=== PATIENT | female | born 1950 | race Caucasian/White ===

== ENCOUNTER 2016-11-22 20:39 | Emergency (ER) | payer MEDICARE, BC ==
--- NOTE | 2016-11-22 21:33 | ED Physician Documentation ---
PD HPI HEENT FB - Chief complaint Chief Complaint: Heent - History obtained from History obtained from: Patient - History of Present Illness Timing - onset: Other (Painful foreign body sensation in the right ear from today. She does have chronic ringing in that ear. Pain is worse if she chews.) Review of Systems Constitutional: denies: Fever, Chills Nose: denies: Rhinorrhea / runny nose, Congestion Throat: denies: Sore throat PD PAST MEDICAL HISTORY - Past Medical History Other Past Medical History: Graves disease in past - Past Surgical History Past Surgical History: Yes Ortho: Shoulder arthroplasty, Carpal Tunnel surgery /TRASH MAN: Hysterectomy - Present Medications Home Medications: Ambulatory Orders Medication Instructions Recorded Confirmed Levothyroxine Sodium 1 tab PO DAILY 11/22/16 11/22/16 - Allergies Allergies/Adverse Reactions: Allergies Allergy/AdvReac Type Severity Reaction Status Date / Time sulfamethoxazole Allergy Unknown Verified 11/22/16 20:44 [From Bactrim] trimethoprim [From Bactrim] Allergy Unknown Verified 11/22/16 20:44 codeine AdvReac Emesis Verified 11/22/16 20:43 - Social History Does the pt smoke?: No Smoking Status: Never smoker Does the pt drink ETOH?: No Does the pt have substance abuse?: No - Immunizations Immunizations are current?: Yes - POLST Patient has POLST: No PD ED PE NORMAL - Vitals Vital signs reviewed: Yes - General General: Alert and oriented X 3, No acute distress - HEENT HEENT: Other (In the right canal there was a small amount of ear wax which were removed, no other foreign body. Removal of ear wax did not improve her pain. There was no canal inflammation, but there was an abnormal appearance of the superoposterior part of the tympanic membrane, possibly a cholesteatoma. She also has TMJ tenderness and clicking.) - Neck Neck: Supple, no meningeal sign, No bony TTP - Neuro Neuro: Alert and oriented X 3, Normal speech - Psych Psych: Normal mood, Normal affect Results - Vitals Vitals: Vital Signs - 24 hr 11/22/16 20:46 Temperature 36.1 C L Heart Rate 70 Respiratory 16 Rate Blood Pressure 155/82 H O2 Saturation 97 Oxygen O2 Source Room air Departure - Departure Disposition: 01 Home, Self Care Clinical Impression: Abnormal tympanic membrane of right ear Condition: Good Record reviewed to determine appropriate education?: Yes Comments: Recommend following up with Dr. Bonilla again, the phone number there is , call tomorrow to schedule an appointment. Return if worse or if new symptoms develop. Your blood pressure was elevated today on check in to the emergency department. This does not mean that you have hypertension, it is a common phenomenon to check into the emergency department and have elevated blood pressure. I recommend that you see your primary care physician within the week to have it rechecked when you're feeling better.
[2016-11-22 21:38] VITALS: BP 140/82
== END 2016-11-22 21:39 | disposition home or self-care (01) ==
LOC: ED 20:39
DX: H73.891 Other specified disorders of tympanic membrane, right ear (principal); R03.0 Elevated blood-pressure reading, without diagnosis of hypertension
CPT/HCPCS: 99283

== ENCOUNTER 2018-04-22 21:54 | Emergency (ER) | payer MEDICARE, BC ==
--- NOTE | 2018-04-22 21:58 | ED Physician Documentation ---
PD HPI CHEST PAIN - Stated complaint Stated Complaint: SOA/CP/NAUSEA - History obtained from History obtained from: Patient - History of Present Illness Timing - onset: Enter time (21:00), Today Timing - onset during: Light activity Timing - details: Abrupt onset Pain level max: 5 Pain level now: 1 Quality: Pressure, Sharp, Pain Location: Left chest Radiation: Back (left upper back), Left upper extremity (left shoulder) Improved by: Nothing Worsened by: Movement (movement of left shoulder) Associated symptoms: Shortness of air, Nausea, Vomiting Similar symptoms before: Has not had sx before Recently seen: Not recently seen Review of Systems Constitutional: reports: Reviewed and negative Cardiac: reports: Chest pain / pressure. denies: Palpitations, Pedal edema, Calf pain Respiratory: reports: Dyspnea. denies: Cough, Wheezing GI: reports: Nausea, Vomiting. denies: Abdominal Pain Musculoskeletal: reports: Back pain (chest pain radiates to left upper back (not back pain per se)). 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: No Does the pt have substance abuse?: No - Immunizations Immunizations are current?: Yes - POLST Patient has POLST: No PD ED PE NORMAL - Vitals Vital signs reviewed: Yes - General General: Alert and oriented X 3, No acute distress, Well developed/nourished - HEENT HEENT: Moist mucous membranes - Neck Neck: Supple, no meningeal sign - Cardiac Cardiac: RRR, No murmur, No gallop, No rub - Respiratory Respiratory: No respiratory distress, Clear bilaterally - Abdomen Abdomen: Soft, Non tender - Derm Derm: Normal color, Warm and dry - Extremities Extremities: No edema Results - Vitals Vitals: Vital Signs - 24 hr 04/22/18 04/22/18 04/22/18 21:59 22:55 23:40 Heart Rate 69 66 68 Respiratory 15 17 18 Rate Blood Pressure 185/86 H 158/83 H 165/77 H O2 Saturation 98 95 99 Oxygen O2 Source Room air - EKG (time done) No standard instances Rate: Rate (enter#) (64) Rhythm: NSR [place]: Normal Intervals: Normal [place] QRS: Normal Ischemia: Normal ST segments - Labs Labs: Laboratory Tests 04/22/18 04/22/18 04/22/18 22:15 22:15 22:15 WBC 5.9 RBC 4.52 Hgb 13.8 Hct 41.6 MCV 92.0 MCH 30.6 MCHC 33.3 RDW 13.0 Plt Count 246 MPV 8.1 Neut # (Auto) 3.2 Lymph # (Auto) 1.8 [place] # (Auto) 0.5 Eos # (Auto) 0.3 Baso # (Auto) 0.1 Absolute Nucleated RBC 0.00 Nucleated RBC % 0.1 Sodium 141 Potassium 3.2 L Chloride 104 Carbon Dioxide 29 Anion Gap 8.0 BUN 17 Creatinine 0.6 Estimated GFR (MDRD) 99 Glucose 118 H Calcium 8.5 Total Bilirubin 0.8 AST 29 ALT 23 Alkaline Phosphatase 88 Troponin I < 0.04 Total Protein 7.2 Albumin 4.2 Globulin 3.0 Albumin/Globulin Ratio 1.4 Lipase 42 - Rads (name of study) chest xray Radiology: Prelim report reviewed, See rad report PD MEDICAL DECISION MAKING - ED course Complexity details: reviewed results, re-evaluated patient, considered differential, d/w patient Departure - Departure Disposition: 01 Home, Self Care Clinical Impression: Chest pain, Hypokalemia Condition: Good Instructions: ED Chest Pain Atypical Unkn Cause, ED Potassium Deficiency Follow-Up: Cecile Chow PA [Primary Care Provider] - Comments: I recommend that you take an aspirin 325mg one tablet by mouth once per day until and unless you are advised otherwise by your primary care provider. Discharge Date/Time: 04/22/18 23:50
[2018-04-22 22:25] LABS: BASOPHILS # (AUTO) 0.1 10^3/uL (0.0-0.1); BASOPHILS % (AUTO) 0.9 %; EOSINOPHILS # (AUTO) 0.3 10^3/uL (0.0-0.7); EOSINOPHILS % (AUTO) 5.5 %; HGB - HEMOGLOBIN 13.8 g/dL (12.0-16.0); LYMPHOCYTES # (AUTO) 1.8 10^3/uL (1.5-3.5); LYMPHOCYTES % (AUTO) 30.8 %; MEAN CORPUSCULAR HEMOGLOBIN 30.6 pg (27.0-31.0); MEAN CORPUSCULAR HGB CONC 33.3 g/dL (32.0-36.0); MEAN PLATELET VOLUME 8.1 fL (7.9-10.8); MONOCYTES # (AUTO) 0.5 10^3/uL (0.0-1.0); MONOCYTES % (AUTO) 8.1 %; NEUTROPHILS # (AUTO) 3.2 10^3/uL (1.5-6.6); NEUTROPHILS % (AUTO) 54.7 %; PLT - PLATELET COUNT 246 10^3/uL (130-450); RED BLOOD COUNT 4.52 10^6/uL (4.20-5.40); WHITE BLOOD COUNT 5.9 x10^3/uL (4.8-10.8)
[2018-04-22 22:35] LABS: ALBUMIN 4.2 g/dL (3.2-5.5); ALBUMIN/GLOBULIN RATIO 1.4 (1.0-2.2); BILIRUBIN,TOTAL 0.8 mg/dL (0.2-1.0); CALCIUM 8.5 mg/dL (8.5-10.3); CREATININE 0.6 mg/dL (0.4-1.0); TOTAL PROTEIN 7.2 g/dL (6.7-8.2)
--- NOTE | 2018-04-22 22:56 | XRAY Report ---
Reason: chest pain Procedure Date: 04/22/2018 Accession Number: [id number] / [id number] Procedure: XR - Chest 2 View X-Ray CPT Code: 93671 FULL RESULT: EXAM: CHEST RADIOGRAPHY EXAM DATE: 04/22/2018 10:26 PM. CLINICAL HISTORY: Chest pain. COMPARISON: None. TECHNIQUE: 2 views. FINDINGS: Lungs/Pleura: No focal opacities evident. No pleural effusion. No pneumothorax. Normal volumes. Mediastinum: Heart and mediastinal contours are unremarkable. Other: None. IMPRESSION: Normal 2-view chest radiography. RADIA
[2018-04-22] MEDS ORDERED: POTASSIUM BICARB 25 MEQ TABLET PO STA (23:26)
[2018-04-22] MEDS ORDERED: ASPIRIN CHEW 81 MG TABLET PO STA (23:33)
[2018-04-22 23:41] VITALS: BP 165/77
== END 2018-04-22 23:50 | disposition home or self-care (01) ==
LOC: ED 21:54
DX: R07.9 Chest pain, unspecified (principal); E87.6 Hypokalemia; E03.9 Hypothyroidism, unspecified
CPT/HCPCS: 36415; 71046; 80053; 83690; 84484; 85025; 93005; 99283; 99284; A9270

== ENCOUNTER 2018-04-26 11:56 | Emergency (ER) | payer MEDICARE, BC ==
--- NOTE | 2018-04-26 13:10 | ED Physician Documentation ---
History of Present Illness - Stated complaint Stated Complaint: L HEAD PRESSURE/L SHOULDER PX - Chief complaint Chief Complaint: General - History obtained from History obtained from: Patient - Additonal information Additional information: The patient is a 68-year-old female who presents with left-sided pressure sensation in her head, with mild numbness and tingling in her left arm and left foot. She denies weakness. Her symptoms started about 3 hours prior to arrival and have persisted since that time. She reports a vague sharp discomfort in her left shoulder, of brief duration. She denies any chest pain or shortness of breath. She denies fever, cough, nausea or vomiting. She was seen here 4 days ago with vague left-sided chest discomfort. Cardiac workup at that time was negative, and she was discharged with diagnosis of atypical chest pain. She has followed up with her primary physician since that time and is scheduled for an outpatient stress test. Review of Systems Constitutional: denies: Fever, Fatigue Eyes: denies: Decreased vision Ears: denies: Tinnitus/ringing Nose: denies: Congestion Throat: denies: Sore throat Cardiac: denies: Chest pain / pressure, Palpitations Respiratory: denies: Dyspnea, Cough GI: denies: Abdominal Pain, Nausea, Vomiting : denies: Dysuria Skin: denies: Rash Neurologic: reports: Numbness (Tingling left arm and leg.), Headache (Pressure sensation left head). 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 - Present Medications Home Medications: Ambulatory Orders Medication Instructions Recorded Confirmed Levothyroxine Sodium 1 tab PO DAILY 11/22/16 11/22/16 - Allergies Allergies/Adverse Reactions: Allergies Allergy/AdvReac Type Severity Reaction Status Date / Time sulfamethoxazole Allergy Unknown Verified 04/22/18 22:05 [From Bactrim] trimethoprim [From Bactrim] Allergy Unknown Verified 04/22/18 22:05 codeine AdvReac Emesis Verified 04/22/18 22:05 - Social History Does the pt smoke?: No Smoking Status: Never smoker Does the pt drink ETOH?: No Does the pt have substance abuse?: No - Immunizations Immunizations are current?: Yes - POLST Patient has POLST: No PD ED PE NORMAL - Vitals Vital signs reviewed: Yes (hypertensive) - General General: Alert and oriented X 3, Well developed/nourished - HEENT HEENT: Atraumatic, PERRL, EOMI, Pharynx benign - Neck Neck: Supple, no meningeal sign, No adenopathy, No JVD - Cardiac Cardiac: RRR, No murmur - Respiratory Respiratory: No respiratory distress, Clear bilaterally - Abdomen Abdomen: Soft, Non tender - Back Back: No CVA TTP - Derm Derm: No rash - Extremities Extremities: No edema, No calf tenderness / cord - Neuro Neuro: Alert and oriented X 3, checking clerk 2-12 intact, No motor deficit, No sensory deficit, Normal speech, Other (No pronator drift.) Eye Opening: Spontaneous Motor: Obeys Commands Verbal: Oriented GCS Score: 15 Results - Vitals Vitals: Vital Signs - 24 hr 04/26/18 04/26/18 04/26/18 12:08 14:39 16:01 Temperature 36.8 C Heart Rate 67 62 61 Respiratory 16 16 16 Rate Blood Pressure 151/86 H 151/87 H 155/78 H O2 Saturation 98 98 96 Oxygen O2 Source Room air - EKG (time done) 12:40 Rate: Rate (enter#) (60) Rhythm: NSR [place]: Normal Intervals: Normal [place] Ischemia: Q waves (in III, consistent with previous inferior IA.) Compare to prior EKG: Changed from prior EKG (Q waves in lead III are new compared to prior EKG of 04/22/2018.) Computer interpretation: Agree with computer - Labs Labs: Laboratory Tests 04/26/18 04/26/18 04/26/18 13:28 13:28 13:28 WBC 6.0 RBC 4.56 Hgb 14.5 Hct 41.8 MCV 91.8 MCH 31.8 H MCHC 34.6 RDW 13.4 Plt Count 274 MPV 8.2 Neut # (Auto) 3.6 Lymph # (Auto) 1.5 [place] # (Auto) 0.5 Eos # (Auto) 0.3 Baso # (Auto) 0.0 Absolute Nucleated RBC 0.00 Nucleated RBC % 0.0 Sodium 138 Potassium 4.1 Chloride 102 Carbon Dioxide 28 Anion Gap 8.0 BUN 18 Creatinine 0.6 Estimated GFR (MDRD) 99 Glucose 88 Calcium 8.8 Troponin I < 0.04 - Rads (name of study) head CT Radiology: Prelim report reviewed, EMP read contemporaneously, See rad report (Generalized age-related cortical atrophic changes without evidence of acute intracranial abnormality.) Carotid duplex scan Radiology: Prelim report reviewed, EMP read contemporaneously, See rad report (No significant bilateral carotid artery plaquing. In the right carotid artery there are no elevated carotid artery velocities to suggest hemodynamically significant stenosis. In the left carotid artery there is no elevated carotid artery velocities to suggest hemodynamically significant stenosis. Normal antegrade flow is present in bilateral vertebral arteries.) PD MEDICAL DECISION MAKING - ED course Complexity details: reviewed old records, reviewed results, re-evaluated patient, considered differential, d/w patient, d/w family ED course: The patient's presentation is most consistent with TIA versus vascular spasm. There is no evidence to suggest acute stroke or intracranial hemorrhage. Treatment in the emergency department included administration of 4 baby aspirin orally. I discussed with the patient and her partner the results of her diagnostic workup, importance of outpatient followup, as well as potentially worrisome signs or symptoms that should prompt reevaluation in the Emergency Department. Departure - Departure Disposition: 01 Home, Self Care Clinical Impression: TIA (transient ischemic attack) Condition: Stable Instructions: ED Transient Ischemic Attack Follow-Up: Cecile Chow PA [Primary Care Provider] - Comments: Take 1 baby aspirin daily. Follow-up with your primary care provider as planned. Return to the emergency department if you develop recurrent or increasing numbness, weakness, headache, chest pain, or otherwise worsening symptoms.
[2018-04-26 13:36] LABS: BASOPHILS % (AUTO) 0.7 %; EOSINOPHILS # (AUTO) 0.3 10^3/uL (0.0-0.7); EOSINOPHILS % (AUTO) 5.4 %; HGB - HEMOGLOBIN 14.5 g/dL (12.0-16.0); LYMPHOCYTES # (AUTO) 1.5 10^3/uL (1.5-3.5); LYMPHOCYTES % (AUTO) 24.9 %; MEAN CORPUSCULAR HEMOGLOBIN 31.8 pg (27.0-31.0); MEAN CORPUSCULAR HGB CONC 34.6 g/dL (32.0-36.0); MEAN CORPUSCULAR VOLUME 91.8 fL (81.0-99.0); MEAN PLATELET VOLUME 8.2 fL (7.9-10.8); MONOCYTES # (AUTO) 0.5 10^3/uL (0.0-1.0); MONOCYTES % (AUTO) 8.4 %; NEUTROPHILS # (AUTO) 3.6 10^3/uL (1.5-6.6); NEUTROPHILS % (AUTO) 60.6 %; PLT - PLATELET COUNT 274 10^3/uL (130-450); RED BLOOD COUNT 4.56 10^6/uL (4.20-5.40); RED CELL DISTRIBUTION WIDTH 13.4 % (12.0-15.0)
[2018-04-26 13:48] LABS: CALCIUM 8.8 mg/dL (8.5-10.3); CREATININE 0.6 mg/dL (0.4-1.0)
--- NOTE | 2018-04-26 15:22 | CT Report ---
Reason: left sided headache, with lower extremity tingling Procedure Date: 04/26/2018 Accession Number: [id number] / [id number] Procedure: CT - Head W/O CPT Code: FULL RESULT: EXAM: CT HEAD EXAM DATE: 04/26/2018 03:04 PM. CLINICAL HISTORY: Left-sided headache, with lower extremity tingling. COMPARISON: None. TECHNIQUE: Multiaxial CT images were obtained from the foramen magnum to the vertex. Reformats: Sagittal and coronal. IV contrast: None. In accordance with CT protocol optimization, one or more of the following dose reduction techniques were utilized for this exam: automated exposure control, adjustment of mA and/or KV based on patient size, or use of iterative reconstructive technique. FINDINGS: Parenchyma: No intraparenchymal hemorrhage. No evidence of mass, midline shift, or CT findings of acute infarction. Navas-white differentiation is distinct. Diffuse chronic microangiopathic white matter changes are evident. Extraaxial Spaces: Normal for age. No subdural or epidural collections identified. Ventricles: The ventricles and cortical sulci are enlarged, consistent with age-related tissue loss. Sinuses and orbits: Imaged paranasal sinuses, orbits, and mastoids show no significant abnormality. Bones: No evidence of fracture or calvarial defect. Other: None. IMPRESSION: Generalized age-related cortical atrophic changes without evidence of acute intracranial abnormality. RADIA
--- NOTE | 2018-04-26 18:41 | Ultrasound Report ---
Reason: vague right sided neuro deficits Procedure Date: 04/26/2018 Accession Number: [id number] / [id number] Procedure: US - Carotid Doppler Complete CPT Code: FULL RESULT: EXAM: BILATERAL CAROTID AND VERTEBRAL ARTERY DUPLEX DOPPLER ULTRASOUND: EXAM DATE: 04/26/2018 06:00 PM CLINICAL HISTORY: Vague right-sided neuro deficits. COMPARISON: None. TECHNIQUE: Grayscale imaging, color Doppler, and duplex spectral Doppler were used to evaluate the carotid and vertebral arteries bilaterally. Static images were obtained. FINDINGS: No significant plaque is identified in the right or left common or internal carotid arteries. Normal antegrade flow is present in bilateral vertebral arteries. VELOCITIES (cm/sec): Right CCA mid: PSV 65.6 cm/sec CCA dist: PSV 55.3 cm/sec ICA prox: PSV 35.8 cm/sec, EDV 13.9 cm/sec ICA mid: PSV 46.7 cm/sec, EDV 22.3 cm/sec ICA dist: PSV 50.7 cm/sec, EDV 19.0 cm/sec ECA: PSV 42.8 cm/sec Vert: PSV 47.9 cm/sec ICA/CCA: 0.77 Left CCA mid: PSV 62.6 cm/sec CCA dist: PSV 66.5 cm/sec ICA prox: PSV 62.3 cm/sec, EDV 23.8 cm/sec ICA mid: PSV 108.6 cm/sec, EDV 40.4 cm/sec ICA dist: PSV 97.6 cm/sec, EDV 38.8 cm/sec ECA: PSV 48.8 cm/sec Vert: PSV 43.1 cm/sec ICA/CCA: 1.6 ICA diameter stenosis: Right: Normal by velocity and <70% by NASCET criteria. Left: Normal by velocity and <70% by NASCET criteria. IMPRESSION: 1. No significant bilateral carotid artery plaquing. 2. In the right carotid artery there are no elevated carotid artery velocities to suggest hemodynamically significant stenosis. 3. In the left carotid artery there are no elevated carotid artery velocities to suggest hemodynamically significant stenosis. 4. Normal antegrade flow is present in bilateral vertebral arteries. General Recommendations: Stenosis =50% ICA - Follow-up ultrasound 6-12 months Stenosis <50% ICA - High Risk Patient with plaque - Follow-up ultrasound 1-2 years Normal Study but High Risk Patient - Follow-up ultrasound 3-5 years Management recommendations and diagnostic criteria are based on current IAC endorsed standards in Carotid Artery Stenosis: Grayscale and Doppler Ultrasound Diagnosis. Validated velocity measurements with angiographic measurements and velocity criteria are extrapolated from diameter data as defined by the Society of Radiologists in Ultrasound Consensus Conference Radiology 2003; 229;340-346. RADIA
[2018-04-26] MEDS ORDERED: ASPIRIN CHEW 81 MG TABLET PO STA (18:47)
[2018-04-26 19:02] VITALS: BP 164/84
== END 2018-04-26 19:13 | disposition home or self-care (01) ==
LOC: ED 11:56
DX: G45.9 Transient cerebral ischemic attack, unspecified (principal); R94.31 Abnormal electrocardiogram [ECG] [EKG]
CPT/HCPCS: 36415; 70450; 80048; 84484; 85025; 93005; 93880; 99283; 99284; A9270

== ENCOUNTER 2018-05-04 08:25 | Outpatient (CLI) | payer MEDICARE, BC | END 2018-05-04 08:26 | disposition home or self-care (01) | LOC: DI 08:25 | PROVIDERS: ATTEND Physician Assistant | DX: R07.9 Chest pain, unspecified (principal); R94.31 Abnormal electrocardiogram [ECG] [EKG]; I10 Essential (primary) hypertension; I34.0 Nonrheumatic mitral (valve) insufficiency | CPT/HCPCS: 93306 ==

== ENCOUNTER 2019-06-24 09:36 | Outpatient (CLI) | payer MEDICARE, BC ==
--- NOTE | 2019-06-24 10:31 | CT Report ---
Reason: ACUTE RHINOSINUSITIS Procedure Date: 06/24/2019 Accession Number: [id number] / [id number] Procedure: CT - Sinuses CPT Code: Final Report FULL RESULT: CT SINUSES WITHOUT CONTRAST INDICATION: 69-year-old female. Acute rhinosinusitis TECHNIQUE: Helical scan with reconstruction into 1 mm axial images. In addition, 1 mm sagittal and coronal reformations have been generated. This examination was performed using a bone algorithm. Images are only available in bone windows. In accordance with CT protocol optimization, one or more of the following dose reduction techniques were utilized for this exam: automated exposure control, adjustment of mA and/or KV based on patient size, or use of iterative reconstructive technique. COMPARISON: 07/14/2008. FINDINGS: Right Frontal: Well aerated and clear. Ethmoid: Mild mucosal thickening is seen scattered throughout the ethmoid air cells. Otherwise well aerated and clear. Maxillary: There is minimal mucosal thickening along the medial wall inferiorly. Otherwise well aerated and clear. Sphenoid: Well aerated and clear. Drainage pathways: The frontal recess is widely patent. The maxillary ostium, the infundibulum and the middle meatus are widely patent. The sphenoethmoidal recess is widely patent. Left Frontal: Well-aerated and clear. Ethmoid: There is mild mucosal thickening in a few air cells. Otherwise well aerated and clear. Maxillary: Well aerated and clear. Sphenoid: Well aerated and clear. Drainage pathways: The frontal recess is patent. The maxillary ostium, the infundibulum and the middle meatus are patent. The sphenoethmoidal recess is patent. Nasal cavity: The nasal septum is midline suggesting the possibility of previous septoplasty. There is mild to moderate mucosal thickening over the middle and inferior turbinates bilaterally with associated narrowing of both nasal passages. No evidence of polyp or other soft tissue mass. The nasopharyngeal soft tissue contours appear symmetric without obvious nasopharyngeal mass. Other: The middle ear cavities and mastoid air cells appear well aerated and clear. Regional bony structures appear intact. The regional soft tissues are normal and evaluated on sequences provided. IMPRESSION: Essentially normal examination. In particular, there is no evidence of active sinusitis. In addition, no obstructing lesion is demonstrated.
== END 2019-06-24 09:37 | disposition home or self-care (01) ==
LOC: DI 09:36
PROVIDERS: ATTEND Otolaryngology
DX: J01.90 Acute sinusitis, unspecified (principal)
CPT/HCPCS: 70486

== ENCOUNTER 2019-06-24 09:52 | Emergency (ER) | payer MEDICARE, BC ==
--- NOTE | 2019-06-24 12:05 | XRAY Report ---
Reason: knee inj Procedure Date: 06/24/2019 Accession Number: [id number] / [id number] Procedure: XR - Knee 4 View LT CPT Code: Final Report FULL RESULT: EXAM: LEFT KNEE RADIOGRAPHY EXAM DATE: 06/24/2019 11:37 AM. CLINICAL HISTORY: Knee injury. Pain and swelling. COMPARISON: None. TECHNIQUE: 4 views. FINDINGS: Bones: On frontal view, there is suggestion of subtle lucency through the lateral aspect of the lateral femoral condyle. This is not clearly seen on additional views. Uncertain if this is artifact or nondisplaced avulsion fracture. Joints: No dislocation or subluxation. A small joint effusion is present. Soft Tissues: Unremarkable. IMPRESSION: 1. Subtle lucency through the lateral femoral condyle may represent artifact or nondisplaced avulsion fracture. If there is focal tenderness in this region, CT or MRI could be considered for further evaluation. 2. Small joint effusion. RADIA
--- NOTE | 2019-06-24 12:12 | ED Physician Documentation ---
History of Present Illness - Stated complaint Stated Complaint: L KNEE PX - Chief complaint Chief Complaint: Trauma Ext - Additonal information Additional information: This is a 69-year-old female who presents with left knee pain. She states that she tripped while walking yesterday and impacted the left knee on the ground. There might have been a bit of twisting motion but no popping or gross deformity. She iced it and took some Advil and it improved for a while, it also seemed to improve when she was in her hot tub, but it was more stiff this morning. She has been able to walk on it but she states that she is voluntarily trying to keep herself from flexing or extending the knee because this causes some pain. She denies any weakness or numbness or tingling. Review of Systems Constitutional: denies: Fever Skin: reports: Abrasion (s). denies: Rash Musculoskeletal: reports: Extremity pain Neurologic: denies: Generalized weakness PD PAST MEDICAL HISTORY - Past Medical History Endocrine/Autoimmune: HyPOthyroidism MUSKRAT TRAPPER: Fibroids Musculoskeletal: Osteoarthritis - Past Surgical History Past Surgical History: Yes Ortho: Shoulder arthroplasty, Carpal Tunnel surgery /MUSKRAT TRAPPER: Hysterectomy - Present Medications Home Medications: Ambulatory Orders Medication Instructions Recorded Confirmed Levothyroxine Sodium 1 tab PO DAILY 11/22/16 11/22/16 - Allergies Allergies/Adverse Reactions: Allergies Allergy/AdvReac Type Severity Reaction Status Date / Time sulfamethoxazole Allergy Unknown Verified 06/24/19 10:10 [From Bactrim] trimethoprim [From Bactrim] Allergy Unknown Verified 06/24/19 10:10 codeine AdvReac Emesis Verified 06/24/19 10:10 - Social History Does the pt smoke?: No Smoking Status: Never smoker Does the pt drink ETOH?: No Does the pt have substance abuse?: No - Immunizations Immunizations are current?: Yes - POLST Patient has POLST: No PD ED PE NORMAL - Vitals Vital signs reviewed: Yes - General General: Alert and oriented X 3, No acute distress - HEENT HEENT: Atraumatic - Cardiac Cardiac: RRR - Respiratory Respiratory: No respiratory distress - Abdomen Abdomen: Non distended - Extremities Extremities: No deformity, Other (There is a very small 0.5 cm diameter abrasion over the inferior aspect of the left patella. The knee is grossly normal in size and symmetric without significant edema. There is no tenderness over the quadriceps tendon or patellar tendon, no MCL tenderness. There is some tenderness over the region of the LCL, to lesser extent over the distal lateral femur and the fibular head. Patient is able to flex past 90 degrees and extend to 180 degrees with mild discomfort ankle dorsiflexion plantarflexion has 5 out of 5 strength, sensation is intact light touch extremities and capillary refill is brisk) - Neuro Neuro: Alert and oriented X 3 - Psych Psych: Normal mood, Normal affect Results - Vitals Vitals: Vital Signs - 24 hr 06/24/19 06/24/19 06/24/19 10:07 11:09 13:34 Temperature 36.7 C 36.7 C 36.7 C Heart Rate 73 64 67 Respiratory 15 16 16 Rate Blood Pressure 147/95 H 149/88 H 158/92 H O2 Saturation 98 96 96 06/24/19 13:55 Temperature Heart Rate 68 Respiratory 16 Rate Blood Pressure 153/72 H O2 Saturation 100 Oxygen O2 Source Room air - Rads (name of study) L Knee XR Radiology: Other (Subtle lucency in the lateral femoral condyle which may be artifact or a nondisplaced fracture.) CT knee Radiology: Other (No fractures, no joint effusion or hemarthrosis) PD MEDICAL DECISION MAKING - ED course Complexity details: considered differential (Fracture, subluxation, contusion, ligamentous injury, tendinous injury) ED course: Patient is able to bear weight on her knee, and her exam is overall quite benign. She is neurovascularly intact. X-ray shows questionable lucency on the lateral femoral condyle, she does have tenderness in this region on repeat examination so CT was performed which shows no fracture. Her ACL, PCL, MCL and LCL are stable on testing with no laxity, and her range of motion of the knee is quite good with no locking/catching. I am optimistic this is contusion or strain, but I reviewed that ligamentous injuryis possible and that she needs to follow-up with her PCP if she is not having improvement in her symptoms. I also think she will benefit from a period of nonweightbearing, so she is given crutches which she was comfortable using and felt safe using. She has used crutches in the past and is quite facile with them. I discussed rest ice compression elevation, return precautions, and patient was discharged home. Departure - Departure Disposition: 01 Home, Self Care Clinical Impression: Knee pain Qualifiers: Chronicity: acute Laterality: left Qualified Code(s): M25.562 - Pain in left knee Condition: Good Instructions: ED RICE Follow-Up: Kalia Mosqueda MD [Provider Admit Priv/Credential] - As Needed (If having persistent pain. I recommend seeing your PCP first.) Cecile Chow PA [Primary Care Provider] - Within 1 week (If having any persistent symptoms) Comments: You were seen today for knee pain. Your CT scan does not show signs of fracture, I think you likely have a bruise or strain of the knee. You may use ibuprofen and Tylenol for discomfort, please also rest, ice, elevate the knee. You may use a KYM wrap for some mild compression if needed. If the pain is causing you to have a significant limp, I recommend using crutches if you can do so safely, until you are able to walk fairly normally on the knee. If you have new or worsening symptoms return to the emergency department Discharge Date/Time: 06/24/19 14:01
--- NOTE | 2019-06-24 13:34 | CT Report ---
Reason: Knee- possible fracture seen on XR Procedure Date: 06/24/2019 Accession Number: [id number] / [id number] Procedure: CT - LOWER EXTREMITY WO - LT CPT Code: Final Report FULL RESULT: EXAM: LEFT KNEE CT WITHOUT CONTRAST EXAM DATE: 06/24/2019 01:10 PM. CLINICAL HISTORY: Knee-possible fracture seen on XR. COMPARISON: KNEE 4 VIEW LT 06/24/2019 11:15 AM,images and report from [facility]. TECHNIQUE: Thin-section axial images were acquired of the knee without contrast. Post-processing: Coronal and sagittal reformats. Other: None. In accordance with CT protocol optimization, one or more of the following dose reduction techniques were utilized for this exam: automated exposure control, adjustment of mA and/or KV based on patient size, or use of iterative reconstructive technique. FINDINGS: Bones: No fracture or bone lesion. In particular, focal area of contour abnormality seen on the previous x-ray corresponds to an unusual but normal appearing lateral femoral epicondyle. Joints: Small joint effusion. No lipohemarthrosis. Musculature: Normal. No fatty atrophy. Other: No Bakers cyst. No soft tissue swelling. IMPRESSION: 1. No fractures. 2. A focal area of concern seen on plain x-ray corresponds to an unusual but normal appearing contour at the lateral femoral epicondyle on CT. 3. Joint effusion, no lipohemarthrosis. RADIA
[2019-06-24 13:59] VITALS: BP 153/72
== END 2019-06-24 14:01 | disposition home or self-care (01) ==
LOC: ED 09:52
DX: S80.02XA Contusion of left knee, initial encounter (principal); M25.562 Pain in left knee; W01.0XXA Fall on same level from slipping, tripping and stumbling without subsequent striking against object, initial encounter; Y93.01 Activity, walking, marching and hiking; J01.90 Acute sinusitis, unspecified
CPT/HCPCS: 70486; 99284

== ENCOUNTER 2020-11-17 08:22 | Outpatient (CLI) | payer MEDICARE, BC ==
--- NOTE | 2020-11-22 15:26 | DEXA Report ---
PROCEDURE: Dexa Spine and/or Hip INDICATIONS: POSTMENOPAUSAL TECHNIQUE: Dual energy x-ray absorptiometry (DXA) was performed on a [employer] System. Regions measur ed are the AP Spine, femoral neck, and if needed forearm. COMPARISON: None. FINDINGS: Lumbar Spine: Bone Mineral Density 1.199 g/cm/cm,T score 0.0, normal Left Hip: Bone Mineral Density 0.856 g/cm/cm,T score -1.2, osteopenia Left Femoral Neck: Bone Mineral Density 0.773 g/cm/cm, T score -1.9, osteopenia (T score greater or equal to -1.0: NORMAL) (T score from -1.1 to -2.4: OSTEOPENIA) (T score less than or equal to -2.5 to: OSTEOPOROSIS) Impression: Osteopenia. Patients with diagnosis of osteoporosis or osteopenia should have regular bone mineral density assess ment. For those eligible for Medicare, routine testing is allowed once every 2 years. Testing frequ ency can be increased for patients who have rapidly progressing disease or for those who are receivin g medical therapy to restore bone mass. Reviewed by: Karine Lopez MD, PhD on 11/17/2020 11:33 AM PDT Approved by: Karine Lopez MD, PhD on 11/17/2020 11:33 AM PDT Station ID: [id number]
== END 2020-11-17 08:23 | disposition home or self-care (01) ==
LOC: DI 08:22
PROVIDERS: ATTEND Nurse Practitioner Family
DX: M85.89 Other specified disorders of bone density and structure, multiple sites (principal)

== ENCOUNTER 2020-11-17 08:23 | Outpatient (CLI) | payer MEDICARE, BC ==
--- NOTE | 2020-11-18 13:41 | Mammography Report ---
BILATERAL DIGITAL SCREENING MAMMOGRAM 3D/2D: 11/17/2020 CLINICAL: Routine screening. Comparison is made to exam dated: 12/16/2012 mammogram - [facility]. There are sca ttered fibroglandular elements in both breasts. No significant masses, calcifications, or other findings are seen in either breast. There has been no significant interval change. IMPRESSION: NEGATIVE There is no mammographic evidence of malignancy. A 1 year screening mammogram is recommended. This exam was interpreted at Station ID: [id number]. NOTE: For mammograms, a report in lay terms will be sent to the patient. Approximately 15% of breast malignancies will not be visualized mammographically. In the management of a palpable breast mass, a negative mammogram must not discourage biopsy of a clinically suspicious lesion. Electronically Signed By: Phuc Haque M.D. [facility] [place]:11/17/2020 16:21:35 ACR BI-RADS Category 1: Negative 3341F PARENCHYMAL PATTERN: (A) - The breast(s) demonstrate(s) scattered fibroglandular densities. BI-RADS CATEGORY: (1) - 1 RECOMMENDATION: (ANNUAL) - Recommend routine annual screening mammography. [id number] 1 year screening LATERALITY: (B)
== END 2020-11-17 08:24 | disposition home or self-care (01) ==
LOC: DI 08:23
PROVIDERS: ATTEND Nurse Practitioner Family
DX: Z12.31 Encounter for screening mammogram for malignant neoplasm of breast (principal)

== ENCOUNTER 2021-02-28 15:53 | Outpatient (CLI) | payer MEDICARE, BC ==
[2021-02-28 20:05] LABS: ALBUMIN 4.6 g/dL (3.2-5.5); ALBUMIN/GLOBULIN RATIO 1.4 (1.0-2.2); BILIRUBIN,TOTAL 0.8 mg/dL (0.2-1.0); CALCIUM 9.3 mg/dL (8.5-10.3); CREATININE 0.8 mg/dL (0.4-1.0); POTASSIUM 4.5 mmol/L (3.5-5.0)
== END 2021-02-28 15:54 | disposition home or self-care (01) ==
LOC: LAB.S 15:53
PROVIDERS: ATTEND Nurse Practitioner Family
DX: I10 Essential (primary) hypertension (principal)
CPT/HCPCS: 36415; 80053

== ENCOUNTER 2021-03-11 10:20 | Outpatient (CLI) | payer MEDICARE, BC ==
--- NOTE | 2021-03-11 14:10 | Ultrasound Report ---
PROCEDURE: Abdomen Complete INDICATIONS: ALTERED BOWEL FUNCTION TECHNIQUE: Real-time scanning was performed of the abdominal and retroperitoneal organs, with image documentatio n. COMPARISON: None. FINDINGS: Liver: Liver is normal in size and mildly coarsened in echotexture. Hepatic steatosis is present. Gallbladder: The gallbladder demonstrates no stones. Wall thickness is within normal limits measuring 1.7 cm. Biliary ducts: Intrahepatic bile ducts are non-dilated. Extrahepatic bile duct caliber measures 4.7 mm. Normal is 6-7 mm or less in diameter, or 10 mm or less post-cholecystectomy. Pancreas: Visualized portions of the pancreas are sonographically normal. Spleen: Spleen is normal in size and homogeneous in echotexture. Kidneys: Kidneys are normal in size and echotexture. Right kidney measures 13.0 cm long; left kidne y measures 13.0 cm long. No hydronephrosis. Nonobstructing bilateral renal calculi are present the largest measuring 11 mm on the left, 5 mm on the right. No solid masses. Aorta: Visualized aorta is normal in caliber at less than 3 cm. Iliacs: Proximal common iliac arteries are normal in caliber at less than 2.5 cm. IVC: Intrahepatic inferior vena cava is patent. Miscellaneous: No free abdominal fluid. IMPRESSION: 1. Mild hepatic steatosis. 2. Nonobstructing bilateral renal calculi. Reviewed by: Lucia Whyte MD on 03/11/2021 2:08 PM PDT Approved by: Lucia Whyte MD on 03/11/2021 2:08 PM PDT Station ID: [id number]
== END 2021-03-11 10:21 | disposition home or self-care (01) ==
LOC: DI 10:20
PROVIDERS: ATTEND Nurse Practitioner Family
DX: R19.4 Change in bowel habit (principal); R10.31 Right lower quadrant pain; R19.7 Diarrhea, unspecified; K76.0 Fatty (change of) liver, not elsewhere classified; N20.0 Calculus of kidney; R71.8 Other abnormality of red blood cells
CPT/HCPCS: 36415; 81270; 85025

== ENCOUNTER 2021-03-11 11:20 | Outpatient (CLI) | payer MEDICARE, BC ==
[2021-03-11 11:43] LABS: BASOPHILS # (AUTO) 0.1 10^3/uL (0.0-0.1); BASOPHILS % (AUTO) 0.8 %; EOSINOPHILS # (AUTO) 0.2 10^3/uL (0.0-0.7); EOSINOPHILS % (AUTO) 2.6 %; HCT - HEMATOCRIT 46.6 % (37.0-47.0); HGB - HEMOGLOBIN 15.8 g/dL (12.0-16.0); LYMPHOCYTES # (AUTO) 1.7 10^3/uL (1.5-3.5); LYMPHOCYTES % (AUTO) 21.4 %; MEAN CORPUSCULAR HEMOGLOBIN 31.9 pg (27.0-31.0); MEAN CORPUSCULAR HGB CONC 33.9 g/dL (32.0-36.0); MEAN CORPUSCULAR VOLUME 94.1 fL (81.0-99.0); MEAN PLATELET VOLUME 9.1 fL (7.9-10.8); MONOCYTES # (AUTO) 0.6 10^3/uL (0.0-1.0); MONOCYTES % (AUTO) 7.9 %; NEUTROPHILS # (AUTO) 5.3 10^3/uL (1.5-6.6); PLT - PLATELET COUNT 281 10^3/uL (130-450); RED BLOOD COUNT 4.95 10^6/uL (4.20-5.40)
== END 2021-03-11 11:21 | disposition home or self-care (01) ==
LOC: LAB 11:20
PROVIDERS: ATTEND Nurse Practitioner Family
DX: R71.8 Other abnormality of red blood cells (principal)
CPT/HCPCS: 36415; 81270; 85025

== ENCOUNTER 2022-01-06 08:00 | Outpatient (CLI) | payer MEDICARE, BC ==
--- NOTE | 2022-01-06 16:57 | XRAY Report ---
PROCEDURE: Knee 3 View LT INDICATIONS: LEFT KNEE PAIN TECHNIQUE: 3 views of the left knee(s) were acquired. COMPARISON: None. FINDINGS: Bones: No fractures or dislocations. No suspicious bony lesions. Mild tricompartmental osteoarthrit is. Soft tissues: No joint effusion. No suspicious soft tissue calcifications. IMPRESSION: Mild tricompartmental osteoarthritis. Reviewed by: Karine Lopez MD, PhD on 01/06/2022 4:56 PM PDT Approved by: Karine Lopez MD, PhD on 01/06/2022 4:56 PM PDT Station ID: [id number]
== END 2022-01-06 23:59 | disposition home or self-care (01) ==
LOC: DI.S 08:00
PROVIDERS: ATTEND Emergency Medicine
DX: M17.12 Unilateral primary osteoarthritis, left knee (principal)

== ENCOUNTER 2023-01-25 15:19 | Outpatient (CLI) | payer MEDICARE, BC ==
[2023-01-25 15:44] LABS: BASOPHILS # (AUTO) 0.1 10^3/uL (0.0-0.1); BASOPHILS % (AUTO) 0.5 %; EOSINOPHILS # (AUTO) 0.4 10^3/uL (0.0-0.7); EOSINOPHILS % (AUTO) 3.7 %; HCT - HEMATOCRIT 45.3 % (37.0-47.0); HGB - HEMOGLOBIN 15.3 g/dL (12.0-16.0); LYMPHOCYTES # (AUTO) 2.2 10^3/uL (1.5-3.5); LYMPHOCYTES % (AUTO) 22.2 %; MEAN CORPUSCULAR HEMOGLOBIN 30.9 pg (27.0-31.0); MEAN CORPUSCULAR HGB CONC 33.8 g/dL (32.0-36.0); MEAN CORPUSCULAR VOLUME 91.5 fL (81.0-99.0); MEAN PLATELET VOLUME 9.4 fL (7.9-10.8); MONOCYTES # (AUTO) 0.8 10^3/uL (0.0-1.0); MONOCYTES % (AUTO) 7.9 %; NEUTROPHILS # (AUTO) 6.5 10^3/uL (1.5-6.6); NEUTROPHILS % (AUTO) 65.5 %; PLT - PLATELET COUNT 298 10^3/uL (130-450); RED BLOOD COUNT 4.95 10^6/uL (4.20-5.40); RED CELL DISTRIBUTION WIDTH 12.9 % (12.0-15.0); WHITE BLOOD COUNT 9.9 x10^3/uL (4.8-10.8)
[2023-01-25 16:02] LABS: ALBUMIN 4.4 g/dL (3.2-5.5); ALBUMIN/GLOBULIN RATIO 1.5 (1.0-2.2); ALKALINE PHOSPHATASE 85 IU/L (42-121); ALT ALANINE AMINOTRANSFERASE 27 IU/L (10-60); AST ASPARTATE AMINOTRANSFERASE 22 IU/L (10-42); BILIRUBIN,TOTAL 0.6 mg/dL (0.2-1.0); BUN - BLOOD UREA NITROGEN 24 mg/dL (6-20); CALCIUM 9.6 mg/dL (8.5-10.3); CARBON DIOXIDE - CO2 34 mmol/L (21-32); CHLORIDE 96 mmol/L (101-111); CHOL/HDL RATIO 4.1 (<4.4); CHOLESTEROL 220 mg/dL; CREATININE 0.7 mg/dL (0.6-1.3); GFR - MDRD 82 (>89); GLUCOSE 97 mg/dL (74-104); HDL CHOLESTEROL 54 mg/dL; LDL CHOLESTEROL,CALCULATED 131 mg/dL; LDL/HDL RATIO 2.4 (<4.4); POTASSIUM 3.3 mmol/L (3.5-4.5); SODIUM 136 mmol/L (135-145); TOTAL PROTEIN 7.4 g/dL (6.4-8.9); TRIGLYCERIDES 173 mg/dL (48-352); VLDL CHOLESTEROL 35 mg/dL
== END 2023-01-25 15:20 | disposition home or self-care (01) ==
LOC: LAB 15:19
PROVIDERS: ATTEND Internal Medicine
DX: E03.9 Hypothyroidism, unspecified (principal); E55.9 Vitamin D deficiency, unspecified; Z79.899 Other long term (current) drug therapy; Z13.220 Encounter for screening for lipoid disorders; L98.8 Other specified disorders of the skin and subcutaneous tissue
CPT/HCPCS: 36415; 80053; 80061; 82306; 83721; 84439; 84443; 84481; 85025

== ENCOUNTER 2023-03-03 15:44 | Outpatient (CLI) | payer MEDICARE, BC ==
[2023-03-03 16:43] LABS: THYROID STIMULATING HORMONE 1.41 uIU/mL (0.34-5.60)
== END 2023-03-03 15:45 | disposition home or self-care (01) ==
LOC: LAB 15:44
PROVIDERS: ATTEND Internal Medicine
DX: E03.9 Hypothyroidism, unspecified (principal)
CPT/HCPCS: 36415; 84439; 84443; 84481

== ENCOUNTER 2023-03-22 16:06 | Outpatient (CLI) | payer MEDICARE, BC ==
[2023-03-22 16:40] LABS: ALBUMIN 4.4 g/dL (3.2-5.5); ALBUMIN/GLOBULIN RATIO 1.6 (1.0-2.2); BILIRUBIN,TOTAL 0.4 mg/dL (0.2-1.0); CALCIUM 9.4 mg/dL (8.5-10.3); POTASSIUM 3.8 mmol/L (3.5-4.5); TOTAL PROTEIN 7.1 g/dL (6.4-8.9)
[2023-03-22 16:55] LABS: THYROID STIMULATING HORMONE 1.21 uIU/mL (0.34-5.60)
== END 2023-03-22 16:07 | disposition home or self-care (01) ==
LOC: LAB 16:06
PROVIDERS: ATTEND Internal Medicine
DX: E87.6 Hypokalemia (principal); E03.9 Hypothyroidism, unspecified
CPT/HCPCS: 36415; 80053; 84439; 84443; 84481

== ENCOUNTER 2023-05-04 11:25 | Outpatient (CLI) | payer MEDICARE, BC ==
[2023-05-04 12:06] LABS: THYROID STIMULATING HORMONE 0.92 uIU/mL (0.34-5.60)
== END 2023-05-04 11:26 | disposition home or self-care (01) ==
LOC: LAB 11:25
PROVIDERS: ATTEND Internal Medicine
DX: E03.9 Hypothyroidism, unspecified (principal)
CPT/HCPCS: 36415; 84439; 84443; 84481

== ENCOUNTER 2023-11-11 14:15 | Emergency (ER) | payer MEDICARE, BC ==
[2023-11-11 14:33] VITALS: BP 148/89; O2SAT 98
--- NOTE | 2023-11-11 15:35 | XRAY Report ---
PROCEDURE: Knee 4+V LT INDICATIONS: Trauma TECHNIQUE: 3 views of the knee was obtained. COMPARISON: None FINDINGS: Bones: No fractures or dislocations. No suspicious bony lesions. Soft tissues: No knee joint effusion. No suspicious soft tissue calcifications or masses. IMPRESSION: Unremarkable knee radiographs Reviewed by: Mik Martinez MD on 11/11/2023 2:34 PM AKDT Approved by: Mik Martinez MD on 11/11/2023 2:34 PM AKDT Station ID: [id number]
--- NOTE | 2023-11-11 16:34 | ED Physician Documentation ---
PD HPI LOWER EXT INJURY - Stated complaint Stated Complaint: LT KNEE PX - Chief complaint Chief Complaint: Ext Problem - History obtained from History obtained from: Patient - History of Present Illness PD HPI LOW EXT INJURY LOCATION: Left, Knee Type of injury: Other (excessive use over the past week helping a friend move) Where injury occurred: Home Timing - onset: How many days ago (5) Timing - duration: Days (5) Timing - details: Gradual onset, Still present Improved by: Rest, Immobilization Worsened by: Moving Associated symptoms: No: Weakness, Numbness, Tingling, Swelling Similar symptoms before: Has not had sx before Recently seen: Not recently seen - Additional information Additional information: Previously well Raven Gilliam is a 73-year-old female who has been helping a friend move and she has been on her feet more than usual she has been on her knees as well and she has been developing some pain in her left knee. She has been helping this friend for about 5 days and pain has gotten worse day by day. She found that she was able to tolerate this with some ibuprofen for several days and then yesterday her pain worsened. Today she was able to get up and move around in the morning but by the time she got to her destination she was unable to bear weight without severe pain. She has no significant swelling. She does not have a specific injury to her knee. She denies fever. 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 Musculoskeletal: Osteoarthritis - Past Surgical History Past Surgical History: Yes Ortho: Shoulder arthroplasty, Carpal Tunnel surgery /MICROBIOLOGY LABORATORY MANAGER: Hysterectomy - Present Medications Home Medications: Ambulatory Orders Medication Instructions Recorded Confirmed Levothyroxine Sodium [Levoxyl] 100 mcg PO DAILY 11/11/23 11/11/23 - Allergies Allergies/Adverse Reactions: Allergies Allergy/AdvReac Type Severity Reaction Status Date / Time sulfamethoxazole Allergy Unknown Verified 11/11/23 14:29 [From Bactrim] trimethoprim [From Bactrim] Allergy Unknown Verified 11/11/23 14:29 codeine AdvReac Emesis Verified 11/11/23 14:29 - Social History Does the pt smoke?: No Smoking Status: Never smoker Does the pt drink ETOH?: No Does the pt have substance abuse?: No - Immunizations Immunizations are current?: Yes - POLST Patient has POLST: No PD ED PE NORMAL - Vitals Vital signs reviewed: Yes (hypertensive) - General General: Alert and oriented X 3, No acute distress, Well developed/nourished - HEENT HEENT: Atraumatic, PERRL, EOMI - Respiratory Respiratory: No respiratory distress - Derm Derm: Normal color, Warm and dry, No rash - Extremities Extremities: No deformity, No edema, Other (Left knee is without palpable effusion there is tenderness to the lateral aspect and the ligaments are stable to testing. 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, No motor deficit, No sensory deficit, Normal speech Eye Opening: Spontaneous Motor: Obeys Commands Verbal: Oriented GCS Score: 15 - Psych Psych: Normal mood, Normal affect Results - Vitals Vitals: Vital Signs - 24 hr 11/11/23 14:27 Temperature 36.7 C Heart Rate 66 Respiratory 16 Rate Blood Pressure 148/89 H O2 Saturation 98 Oxygen O2 Source Room air - Rads (name of study) knee Relevant Findings:: Prelim report reviewed (Impression: Unremarkable knee radiographs.), EMP independent interpretation of test PD Medical Decision Making - ED course Complexity details: considered differential, d/w patient ED course: 73-year-old female with a sore knee after excessive use does not have significant swelling but she is having pain bad enough that she is not able to bear weight adequately. She is administered dexamethasone and Toradol with expectation of improvement in her pain. I have asked the patient to reduce her use of the left knee and to increase her use of ibuprofen and to add Tylenol in with that for pain control. She is refusing narcotic pain medication prescription. Departure - Departure Disposition: 01 Home, Self Care Clinical Impression: Reactive arthritis of left knee Condition: Stable Instructions: Knee Osteoarthritis Follow-Up: Analisa Toussaint MD [Provider Admit Priv/Credential] - Comments: Raven, today looks like you have used your knee excessively causing some inflammation. We have given you a dose of dexamethasone and this should begin to help later this afternoon. We have also given you some Toradol which should begin to help now. My recommendation for pain control is to use ibuprofen 800 mg with 1000 mg of Tylenol every 8 hours. The expectation with reduced activity and time is resolution of your symptoms within the week. Forms: PCP List
[2023-11-11] MEDS: DEXAMETHASONE 10 MG/ML VIAL PO STA (16:58)
[2023-11-11] MEDS: CHERRY SYRUP 10 ML UDC PO ONE (16:58)
[2023-11-11] MEDS: KETOROLAC 30 MG/ML VIAL IM STA (16:58)
== END 2023-11-11 17:34 | disposition home or self-care (01) ==
LOC: ED 14:15
DX: M02.362 Reiter's disease, left knee (principal); X58.XXXA Exposure to other specified factors, initial encounter; Y93.E6 Activity, residential relocation; E03.9 Hypothyroidism, unspecified; Z79.899 Other long term (current) drug therapy
CPT/HCPCS: 73564; 96372; 99283; 99284; A9270

== ENCOUNTER 2023-11-21 12:16 | Outpatient (CLI) | payer MEDICARE, BC ==
[2023-11-21 12:44] LABS: CALCIUM, IONIZED 1.08 mmol/L (1.15-1.33); VBG PH 7.443 (7.31-7.41)
[2023-11-21 13:06] LABS: THYROID STIMULATING HORMONE 15.92 uIU/mL (0.34-5.60)
== END 2023-11-21 12:17 | disposition home or self-care (01) ==
LOC: LAB 12:16
PROVIDERS: ATTEND Internal Medicine
DX: N20.0 Calculus of kidney (principal); E89.2 Postprocedural hypoparathyroidism; E55.9 Vitamin D deficiency, unspecified; E06.3 Autoimmune thyroiditis
CPT/HCPCS: 36415; 82306; 82330; 83970; 84439; 84443; 84481

== ENCOUNTER 2024-01-20 17:15 | Outpatient (CLI) | payer MEDICARE, BC ==
[2024-01-20 18:01] LABS: THYROID STIMULATING HORMONE 6.34 uIU/mL (0.34-5.60)
== END 2024-01-20 17:16 | disposition home or self-care (01) ==
LOC: LAB 17:15
PROVIDERS: ATTEND Internal Medicine
DX: R03.0 Elevated blood-pressure reading, without diagnosis of hypertension (principal); Z79.899 Other long term (current) drug therapy; E03.9 Hypothyroidism, unspecified; E06.3 Autoimmune thyroiditis; Z13.220 Encounter for screening for lipoid disorders
CPT/HCPCS: 36415; 80053; 80061; 83721; 84439; 84443; 84481; 85025